=== PATIENT | male | born 1955 | race Caucasian/White ===

== ENCOUNTER 2024-02-08 13:53 | Outpatient (CLI) | payer OTHER, SELFPAY ==
[2024-02-14 10:47] LABS: Reference Lab Test Name DRUG 9 W/CONFIRM UR
== END 2024-02-08 13:54 | disposition home or self-care (01) ==
DX: F11.20 Opioid dependence, uncomplicated (principal)
CPT/HCPCS: 80307; 80348

== ENCOUNTER 2024-12-03 13:52 | Outpatient (CLI) | payer OTHER, SELFPAY ==
[2024-12-09 16:08] LABS: Summary Report (Summary) FINAL (.)
== END 2024-12-03 13:53 | disposition home or self-care (01) ==
DX: F11.20 Opioid dependence, uncomplicated (principal)
CPT/HCPCS: 80307

== ENCOUNTER 2025-01-27 13:10 | Emergency (ER) | payer OTHER, SELFPAY ==
--- OUTSIDE RECORDS SUMMARY | 2013-06-09 18:00 | XMS_ITS | Continuity of Care Document ---
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 [address] , [address], [place], [place], [id number]. tel:[phone] Referring Provider: CARY Centeno [address] Internal Medicine, [place], [address] . tel:[phone] Family History Family Member Type Diagnosis Age At Onset No Information Payers Payer name Insurance type Covered democrat ID Authoriza tion(s) Medicaid [facility] [id number] Social History Type Description Quantity Date Captured Comments Sex Male Smoking Status No Information Chief Complaint And Reason For Visit No Information Reason For Referral Reason For Referral No Information History Of Present Illness Encounter Date Complaint History Of Prese nt Illness No Information Functional Status Date Functional Assessmen t No Information Instructions Date Instruction Additional Infor mation No Information Assessments Type Assessment Date No Information Patient Care Teams Name Effective Dates (start - stop) Status Members No Information
[2025-01-27 13:10] VITALS: BP 187/95; PULSE 98; RESP 16; TEMP 37.1; O2SAT 94
--- NOTE | 2025-01-27 13:28 | ED.MALEGU ---
HPI - Male Genitourinary General Chief complaint: Urogenital-Male Stated complaint: blood in urine Time Seen by Provider: 01/27/25 13:27 Source: patient Mode of arrival: ambulatory Limitations: no limitations History of Present Illness HPI Narrative: Patient is a 69-year-old male with burning on urination and a little blood in his urine and a little bit of pus on the tip all today. No concerns for STD per the patient. No intercourse in many years. He is not having any other complaints at this time except burning with urination. MD Complaint: penile discharge and dysuria Onset (ago): day(s) (One) Duration: intermittent Location: penis Radiation: penis (Dysuria) Severity: mild Severity scale (1-10): 2 Quality: burning Relieving factors: none Exacerbating factors: urination Context: other (Patient having burning on urination with some blood and pus seen at the tip of the penis just today) Associated symptoms: Reports discharge, blood in urine and dysuria Related Data Sexually active: No Home Medications ?Medication ?Instructions ?Recorded ?Confirmed ?Last Taken ?Type buprenorphine 8 mg-naloxone 2 mg film 01/27/25 01/27/25 History sublingual film Allergies Allergy/AdvReac Type Severity Reaction Status Date / Time No Known Allergies Allergy Verified 01/27/25 13:24 Review of Systems Review of Systems: All systems reviewed & are unremarkable except as noted in HPI and below Constitutional: Constitutional: Reports no additional constitutional complaints Eyes: Eyes: Reports no additional eye complaints ENT: Reports system reviewed and no additional complaints, except as documented Cardiovascular: Cardiovascular: Reports no additional cardiovascular complaints Respiratory: Respiratory: Reports no additional respiratory complaints Gastrointestinal: Gastrointestinal: Reports no additional gastrointestinal complaints Genitourinary: Genitourinary: Reports no additional male genitourinary complaints Musculoskeletal: Musculoskeletal: Reports no additional musculoskeletal complaints Integumentary/Breasts: Skin/Breast: Reports system reviewed and no additional complaints, except as docu Neurologic: Reports system reviewed and no additional complaints, except as documented Psychiatric: Psychiatric: Reports no additional psychiatric complaints Endocrine: Endocrine: Reports no additional endocrine complaints Hematologic/Lymphatic: Hematologic/Lymphatic: Reports no additional hematologic/lymphatic complaints Allergic/Immunologic: Allergic/Immunologic: Reports no additional allergic/immunologic complaints Exam Const: General: healthy appearing Nutritional Appearance: well nourished Limitations: no limitations HENMT: Head: normal to inspection Ears: TM's normal bilaterally Face/Nose/Sinus: Normal external nose present Eyes: Conjunctivae: conjunctivae normal Pupils: Equal, round and reactive pupils present EOM: EOMs intact bilaterally Neck: Neck: normal visual inspection Chest: Chest palpation & inspection: normal inspection of the chest Resp: Effort & Inspection: normal respiratory effort and not labored Auscultation: clear to auscultation bilaterally and no crackles Cardio: Rate: regular rate Rhythm: regular rhythm Heart sounds: no murmurs GI: Inspection: non-distended GI Palp: Yes Soft to palpation and No Tenderness to palpation present (GI) Auscultation: normal bowel sounds : General: Yes bladder normal to palpation Other: Deferred genital/rectal exam per the patient Back/Spine/Pelvis: Back: no CVA tenderness Skin: General skin exam: normal color Rashes: no rashes Wounds: no wounds Neuro: General: patient oriented x3, moves all extremities and no meningeal signs Extrem: General: normal to inspection, no clubbing, cyanosis or edema and no pedal edema Psych: Mental Status: mental status grossly normal Affect: normal affect Attitude: cooperative Course Vital Signs Vital signs: Vital Signs Temperature 37.1 C 01/27/25 13:10 Pulse Rate 98 01/27/25 13:10 Respiratory Rate 16 01/27/25 13:10 Blood Pressure 187/95 H 01/27/25 13:10 Pulse Oximetry 94 01/27/25 13:10 Oxygen Delivery Room Air 01/27/25 13:10 Temperature 36.9 C 01/27/25 14:33 Pulse Rate 86 01/27/25 14:33 Respiratory Rate 18 01/27/25 14:33 Blood Pressure 149/79 H 01/27/25 14:33 Pulse Oximetry 98 01/27/25 14:33 Oxygen Delivery Room Air 01/27/25 14:33 MDM - Male Genitourinary MDM Narrative Medical decision making narrative: Patient is a 69-year-old male with burning on urination with some pus and blood in the urine. No concern for STDs. Urinalysis. Antibiotics. Probable prostatitis. No difficulty with urinary stream. Patient declined CT scan to look for stone. Lab Data Attestation: I reviewed the patient's lab results. Labs: Lab Results 01/27/25 Range/Units 13:35 Urine Color Dark red (Yellow) Urine Appearance Cloudy A (Clear) Urine pH 6.5 (5.0-8.0) Ur Specific [place] 1.020 (1.010-1.020) Urine Protein 3+ H (Negative) Urine Glucose (UA) Negative (Negative) Urine Ketones Negative (Negative) Ur Blood (Man) 3+ H (Negative) Urine Nitrate Positive H (Negative) Urine Bilirubin 1+ H (Negative) Urine Urobilinogen 1.0 (0.2-1.0) mg/dL Leukocyte Esterase Rfl 3+ H (Negative) PANKAJ/UL Urine RBC >75 H (0-2) /hpf Urine WBC 16-20 H (0-3) /hpf Urine Bacteria 2+ H (None) /hpf Discharge Plan Discharge Clinical Impression: Acute UTI Prostatitis Qualifiers: Prostatitis type: acute Qualified Code(s): N41.0 - Acute prostatitis Patient Disposition: Home Condition: Stable Instructions: Prostatitis (ED), Urinary Tract Infection in Men (ED) Patient Language: Slovenian Prescriptions: New ciprofloxacin HCl 500 mg tablet 500 mg PO BID 10 Days Qty: 20 0RF No Action buprenorphine-naloxone 8-2 mg film Follow-up/Referrals: Koby Wilson DO [Physician, Family Practice] Time of Disposition: 14:06
[2025-01-27 13:41] LABS: Add Urine Microscopic? YES; Appearance Urine Cloudy (Clear); Glucose Urine UA Negative (Negative); Leukocyte Esterase Ur 3+ LEU/UL (Negative); Nitrate Urine Positive (Negative); Specific Grav Ur 1.020 (1.010-1.020)
[2025-01-27 14:33] VITALS: BP 149/79; PULSE 86; RESP 18; TEMP 36.9; O2SAT 98
--- NOTE | 2025-01-29 13:50 | PC.NURSE ---
Addendum entered by Camilo Fontenot RN 01/29/25 13:54: pt started on cipro Original Note: urine , culture preliminary --e coli. awaiting final results .
--- NOTE | 2025-01-30 13:58 | PC.NURSE ---
abnormal urine culture final, e coli. pt rx cipro. no changes needed per dr osorio
== END 2025-01-27 14:36 | disposition home or self-care (01) ==
PROVIDERS: Emergency Provider Emergency Medicine; Referring Provider Internal Medicine
DX: N39.0 Urinary tract infection, site not specified (principal); N41.0 Acute prostatitis
CPT/HCPCS: 81001; 87086; 87186; 99283